=== PATIENT | female | born 1985 | race Caucasian/White ===

== ENCOUNTER → 2017-12-05 | Emergency (ER) | payer OTHER ==
[~2017-12-05] VITALS: Ht 162.6 cm; Wt 56.7 kg
== END | disposition left against medical advice (07) ==
LOC: ER 21:36
DX: Z53.20 Procedure and treatment not carried out because of patient's decision for unspecified reasons (principal)

== ENCOUNTER 2021-11-15 23:07 | Emergency (ER) | payer OTHER ==
[~2021-11-15] VITALS: Ht 162.6 cm; Wt 64.0 kg
[2021-11-16] MEDS ORDERED: NORFLEX100MG PO (04:18)
[2021-11-16] MEDS ORDERED: DICLOFENAC POTA50 MG PO (04:18)
== END 2021-11-16 05:56 | disposition home or self-care (01) ==
LOC: ER 23:07
DX: S00.93XA Contusion of unspecified part of head, initial encounter (principal); X58.XXXA Exposure to other specified factors, initial encounter; Y93.9 Activity, unspecified; Y92.9 Unspecified place or not applicable; Y99.9 Unspecified external cause status; M54.2 Cervicalgia; Z88.8 Allergy status to other drugs, medicaments and biological substances

== ENCOUNTER → 2022-06-22 | Emergency (ER) | payer OTHER ==
[~2022-06-22] VITALS: Ht 162.6 cm; Wt 65.8 kg
[~2022-06-22] MED LIST: ACETAMINOPHEN650 M2; CEPHALEXIN500 MG PO; DICLOFENAC POTA50 MG PO; NORFLEX100MG PO
== END | disposition home or self-care (01) ==
LOC: ER 23:11
DX: S91.202A Unspecified open wound of left great toe with damage to nail, initial encounter (principal)